=== PATIENT | female | born 2000 | race Two or more races ===

== ENCOUNTER 2024-02-11 02:04 | Emergency (ER) | payer OTHER ==
[~2024-02-11] VITALS: Ht 160 cm; Wt 64.4 kg
[2024-02-11] MEDS ORDERED: KETOROLAC TROMETHAMINE 60 MG VIAL IM STA (05:01)
[2024-02-11] MEDS ORDERED: NORFLEX100MG PO (05:32)
== END 2024-02-11 05:37 ==
LOC: ER 02:06
DX: S46.911A Strain of unspecified muscle, fascia and tendon at shoulder and upper arm level, right arm, initial encounter (principal)
CPT/HCPCS: 73030; 96372; 99283; J1885